=== PATIENT | male | born 1980 | race American Indian/Alaskan Native ===

== ENCOUNTER 2017-06-08 11:28 | Emergency (ER) | payer OTHER ==
[2017-06-08] MEDS ORDERED: FLEXERIL PO ONE (15:08)
[2017-06-08] MEDS ORDERED: TORADOL IM ONE (15:08)
--- NOTE | 2017-06-08 15:13 | Emergency Department Report ---
ED Back Pain/Injury HPI - General Chief Complaint: Back Pain/Injury Stated Complaint: BACK PAIN Time Seen by Provider: 06/08/17 15:02 Source: patient Mode of arrival: Ambulatory Limitations: No Limitations - History of Present Illness Initial Comments: PT c/o back pain since 829. PT states he was outside and working on fence. PT states he picked up fence and he felt fine, however he felt a "pop" when he pulled on the fence. PT states he took two tabs of Tylenol for this and it did not help. PT rates his pain 06/26. MD Complaint: back pain, back injury -: Sudden, hour(s) Time: 08:30 Similar Symptoms Previously: No Place: home Radiation: none Severity: severe Severity scale (0 -10): 10 Quality: sharp Consistency: constant Improves With: none Worsens With: movement, walking Context: while lifting (and pulling ) Associated Symptoms: denies other symptoms. denies: difficulty walking, difficulty urinating, incontinence, abdominal pain, nausea/vomiting Treatments Prior to Arrival: heat therapy, acetaminophen - Related Data Previous Rx's Medication Instructions Recorded Last Taken Type Acetaminophen/Codeine [Tylenol #3] 1 tab PO Q6H PRN #12 tab 06/08/17 Unknown Rx Ibuprofen [Motrin] 600 mg PO Q8H PRN #15 tablet 06/08/17 Unknown Rx methOCARBAMOL [Robaxin TAB] 500 mg PO Q6H PRN #15 tablet 06/08/17 Unknown Rx Allergies Allergy/AdvReac Type Severity Reaction Status Date / Time No Known Allergies Allergy Unverified 06/08/17 11:44 ED Review of Systems ROS: Stated complaint: BACK PAIN Other details as noted in HPI Comment: All other systems reviewed and negative Constitutional: denies: fever Cardiovascular: denies: chest pain Gastrointestinal: denies: abdominal pain Musculoskeletal: as per HPI, back pain Neurological: denies: headache ED Past Medical Hx - Past Medical History Previous Medical History?: No - Surgical History Past Surgical History?: No - Social History Smoking Status: Current Every Day Smoker Substance Use Type: Alcohol - Medications Home Medications: Home Medications Medication Instructions Recorded Confirmed Last Taken Type Acetaminophen/Codeine [Tylenol #3] 1 tab PO Q6H PRN #12 tab 06/08/17 Unknown Rx Ibuprofen [Motrin] 600 mg PO Q8H PRN #15 tablet 06/08/17 Unknown Rx methOCARBAMOL [Robaxin TAB] 500 mg PO Q6H PRN #15 tablet 06/08/17 Unknown Rx ED Physical Exam - General Limitations: No Limitations General appearance: alert, other (appears uncomfortable. pt in prone postition ) - Head Head exam: Present: atraumatic, normocephalic - Eye Eye exam: Present: normal appearance, PERRL, EOMI. Absent: conjunctival injection - ENT ENT exam: Present: normal exam, mucous membranes moist, normal external ear exam - Neck Neck exam: Present: normal inspection. Absent: tenderness - Respiratory Respiratory exam: Present: normal lung sounds bilaterally. Absent: respiratory distress, chest wall tenderness - Cardiovascular Cardiovascular Exam: Present: regular rate, normal rhythm, normal heart sounds - GI/Abdominal GI/Abdominal exam: Present: soft. Absent: tenderness, guarding, rebound - Extremities Exam Extremities exam: Present: normal inspection, full ROM, normal capillary refill. Absent: tenderness, pedal edema, joint swelling, calf tenderness - Back Exam Back exam: Present: normal inspection, tenderness, muscle spasm, paraspinal tenderness (R t spine ), vertebral tenderness (to T spine ). Absent: full ROM, CVA tenderness (R), CVA tenderness (L) - Neurological Exam Neurological exam: Present: alert, oriented X3 - Psychiatric Psychiatric exam: Present: normal affect, normal mood - Skin Skin exam: Present: warm, dry, intact, normal color ED Course Vital Signs 06/08/17 06/08/17 11:44 15:52 Temperature 98.5 F 98.0 F Pulse Rate 78 70 Respiratory 18 16 Rate Blood Pressure 121/73 Blood Pressure 111/63 [Right] O2 Sat by Pulse 99 100 Oximetry - Reevaluation(s) Reevaluation #1: 06/08/17 15:14 PT aware of plan of care. Reevaluation #2: 06/08/17 16:18 PT states his pain decreased. PT aware of XR results. PT has no questions at this time. - Pulse Oximetry Interpretation Digit-Finger Initial Pulse Oximetry Readin Actions Taken: none ED Medical Decision Making - Radiology Data Radiology results: report reviewed XR T-spine:NAP - Differential Diagnosis fracture, strain Critical Care Time: No Critical care attestation.: If time is entered above; I have spent that time in minutes in the direct care of this critically ill patient, excluding procedure time. ED Disposition Clinical Impression: Acute back pain Qualifiers: Back pain location: thoracic back pain Back pain laterality: right Qualified Code(s): M54.6 - Pain in thoracic spine Disposition: TO HOME OR SELFCARE Is pt being admited?: No Does the pt Need Aspirin: No Condition: Stable Instructions: Acute Low Back Pain (ED), Muscle Spasm (ED) Additional Instructions: No driving or alcohol after taking Robaxin or Tylenol #3 Follow up with PCP in 3-5 days Avoid lifting anything over 15 lbs at this time. Prescriptions: Acetaminophen/Codeine [Tylenol #3] 1 tab PO Q6H PRN #12 tab PRN Reason: Pain , Severe (7-10) Ibuprofen [Motrin] 600 mg PO Q8H PRN #15 tablet PRN Reason: Pain methOCARBAMOL [Robaxin TAB] 500 mg PO Q6H PRN #15 tablet PRN Reason: Muscle Spasm Referrals: PRIMARY CARE, [Primary Care Provider] - 3-5 Days BROOK COX MD [Staff Physician] - 3-5 Days Forms: Accompanied Note, Work/School Release Form(ED) Time of Disposition: 16:20
--- NOTE | 2017-06-08 15:53 | XRay Report ---
Thoracic spine 2 views: History: Mid back pain. Findings: Normal height of vertebral bodies and intervertebral disc. No fracture. No paravertebral mass or soft tissue calcification. Impression: No definite bony or articular abnormality thoracic spine.
[2017-06-08 15:54] VITALS: BP 111/63
== END 2017-06-08 16:53 | disposition home or self-care (01) ==
LOC: ED 11:28
DX: M54.6 Pain in thoracic spine (principal); F17.200 Nicotine dependence, unspecified, uncomplicated
CPT/HCPCS: 72070; 96372; 99283; J1885